=== PATIENT | male | born 1990 | race African-American/Black ===

== ENCOUNTER 2016-10-10 13:03 | Emergency (ER) | payer SELFPAY ==
[~2016-10-10] VITALS: Ht 182.8 cm; Wt 99.8 kg
[~2016-10-10 13:03] MED LIST: ALLEGRA180 MG PO; AMOXICILLIN500 MG PO; ANUSOL-HC25 MG RC; CARDIZEM CD180 MG PO; KENALOG0.1% TP; NKHM; PREDNICOT20 MG PO; TRAMADOL HCL50 MG PO
[2016-10-10 13:22] LABS: BILIRUBIN NEGATIVE (NEGATIVE); BLOOD NEGATIVE (NEGATIVE); CLARITY SL CLOUDY (CLEAR); COLOR YELLOW (YELLOW); GLUCOSE NEGATIVE (NEGATIVE); KETONE NEGATIVE (NEGATIVE); LEUKO ESTERASE 2+ (NEGATIVE); NITRITE NEGATIVE (NEGATIVE); PROTEIN NEGATIVE (NEGATIVE)
[2016-10-10 13:35] LABS: URINE REFLEX COMMENT YES (NO); WBC 21-30 wbc/hpf (0-5)
[2016-10-10 13:36] LABS: MUCOUS TRACE; RBC 0-2 rbc/hpf (0-2)
== END 2016-10-10 13:32 | disposition home or self-care (01) ==
LOC: ED 13:03
PROVIDERS: Physician Assistant
DX: Z20.2 Contact with and (suspected) exposure to infections with a predominantly sexual mode of transmission (principal); N34.2 Other urethritis; Z91.013 Allergy to seafood

== ENCOUNTER 2017-10-19 21:49 | Emergency (ER) | payer SELFPAY ==
[~2017-10-19] VITALS: Ht 182.8 cm; Wt 102.1 kg
[2017-10-19] MEDS ORDERED: KEFLEX500 M1 PO (22:15)
[2017-10-19] MEDS ORDERED: ERYTHROMYCIN OPH1 GM OPH (22:31)
== END 2017-10-19 22:32 | disposition home or self-care (01) ==
LOC: ED 21:49
DX: H00.012 Hordeolum externum right lower eyelid (principal); Z91.013 Allergy to seafood

== ENCOUNTER 2018-01-13 08:33 | Emergency (ER) | payer SELFPAY ==
[~2018-01-13] VITALS: Ht 182.8 cm; Wt 102.1 kg
[~2018-01-13 08:33] MED LIST changes: +ERYTHROMYCIN OPH1 GM OPH; +KEFLEX500 M1 PO
== END 2018-01-13 08:50 | disposition home or self-care (01) ==
LOC: ED 08:33
DX: H00.012 Hordeolum externum right lower eyelid (principal); Z91.013 Allergy to seafood

== ENCOUNTER 2018-07-14 13:44 | Emergency (ER) | payer SELFPAY ==
[~2018-07-14 13:44] MED LIST changes: +ZYRTEC10 MG PO
[2018-07-14 14:11] LABS: BILIRUBIN NEGATIVE (NEGATIVE); BLOOD NEGATIVE (NEGATIVE); CLARITY CLEAR (CLEAR); COLOR YELLOW (YELLOW); GLUCOSE NEGATIVE (NEGATIVE); KETONE TRACE (NEGATIVE); NITRITE NEGATIVE (NEGATIVE); PH 6.5 (5.0-9.0); SPECIFIC GRAVITY 1.015 (1.005-1.030); UROBILINOGEN 0.2 E.U./dl (0.2-1.0)
[2018-07-14 14:23] LABS: LEUKO ESTERASE NEGATIVE (NEGATIVE)
[2018-07-14 14:24] LABS: BACTERIA TRACE
[2018-07-16 22:05] LABS: GONOCOCCUS BY NAA Negative (Negative)
== END 2018-07-14 15:49 | disposition home or self-care (01) ==
LOC: ED 13:44
PROVIDERS: Emergency Medicine
DX: R10.9 Unspecified abdominal pain (principal); N50.89 Other specified disorders of the male genital organs; Z91.013 Allergy to seafood; Z79.899 Other long term (current) drug therapy

== ENCOUNTER 2019-12-26 23:37 | Emergency (ER) | payer SELFPAY ==
[~2019-12-26] VITALS: Ht 182.8 cm; Wt 111.1 kg
[2019-12-27] MEDS ORDERED: CYCLOBENZAPRINE5 M3 PO (02:09)
[2019-12-27] MEDS ORDERED: Motrin,Rufen800 MG PO (02:09)
== END 2019-12-27 02:30 | disposition home or self-care (01) ==
LOC: ED 23:37
DX: S16.1XXA Strain of muscle, fascia and tendon at neck level, initial encounter (principal); Z91.013 Allergy to seafood; X58.XXXA Exposure to other specified factors, initial encounter; Y93.89 Activity, other specified; Y92.89 Other specified places as the place of occurrence of the external cause; Y99.8 Other external cause status

== ENCOUNTER 2020-05-25 11:35 | Emergency (ER) | payer SELFPAY ==
[~2020-05-25] VITALS: Ht 182.8 cm; Wt 122.0 kg
[~2020-05-25 11:35] MED LIST changes: +CYCLOBENZAPRINE5 M3 PO; +Motrin,Rufen800 MG PO
== END 2020-05-25 12:35 | disposition home or self-care (01) ==
LOC: ED 11:35
DX: R43.8 Other disturbances of smell and taste (principal); Z20.828 Contact with and (suspected) exposure to other viral communicable diseases; Z91.013 Allergy to seafood

== ENCOUNTER 2023-12-03 11:32 | Emergency (ER) | payer SELFPAY ==
[~2023-12-03] VITALS: Ht 182.8 cm; Wt 117.9 kg
[2023-12-03] MEDS ORDERED: Doxycycline Hyclate 100 MG CAP PO ONE (12:00)
[2023-12-03 12:01] LABS: BILIRUBIN Negative (Negative); BLOOD Negative (Negative); CLARITY Clear (Clear); COLOR Yellow (Yellow); GLUCOSE Trace (Negative); KETONE Negative (Negative); LEUKO ESTERASE Negative (Negative); NITRITE Negative (Negative); SPECIFIC GRAVITY 1.015 (1.001-1.030)
[2023-12-03] MEDS ORDERED: VIBRAMYCIN100 MG PO (12:02)
[2023-12-03 12:20] LABS: MUCOUS TRACE; RBC 0-2 rbc/hpf (0-2)
== END 2023-12-03 11:56 | disposition home or self-care (01) ==
LOC: ED 11:32
PROVIDERS: Physician Assistant Medical
DX: A64 Unspecified sexually transmitted disease (principal); Z91.013 Allergy to seafood; Z98.890 Other specified postprocedural states